=== PATIENT | male | born 1970 | race Caucasian/White ===

== ENCOUNTER 2020-07-03 19:01 | Emergency (ER) | payer SELFPAY ==
[2020-07-03 19:12] VITALS: BP 179/95; PULSE 94; RESP 24; TEMP 37.2; O2SAT 100
--- NOTE | 2020-07-03 19:15 | ECG_ITS ---
Measurements Intervals [place] Rate: 92 P: 86 UT: 144 QRS: 85 QRSD: 98 T: 78 QT: 369 QTc: 458 Interpretive Statements SINUS RHYTHM POSSIBLE LEFT ATRIAL ENLARGEMENT BASELINE ARTIFACT- I, II, III, AVR, AVL, AVF, V1-V2 BORDERLINE ECG Electronically Signed On 07-04-2020 14:16:12 CDT by Cachorro Ruby D.O.
[2020-07-03 20:12] VITALS: BP 179/95; O2SAT 100
[2020-07-03 20:13] VITALS: PULSE 94; RESP 24; TEMP 37.2
--- NOTE | 2020-07-03 20:15 | PC.NURSE ---
0 noted pt refused neuro exam from staff at this time. observed steady on feet, moving all extremities well, speech clear, slight trembling of right arm. reports numbness to left arm previously, fingers presently - states no other changes. .
--- NOTE | 2020-07-04 11:45 | ED.CHESTPAIN ---
HPI - Chest Pain General Chief Complaint: Chest Pain Stated Complaint: left arm numbness Time Seen by Provider: 07/03/20 19:10 Source: patient and RN notes reviewed Mode of arrival: ambulatory Limitations: no limitations History of Present Illness HPI narrative: Patient presents today complaining of left sided chest pain that radiates to the left shoulder and left hand numbness. He describes the pain as sharp. Patient states the numbness started in his entire arm, but has now diminished to just the hand. Symptoms began at 1330. Patient reports the chest pain is intermittent and the numbness is constant. Patient denies shortness of breath, nausea or vomiting, weakness, dizziness or lightheadedness, headache or vision changes, difficulty speaking or swallowing, mental status changes. Denies any alleviating or exacerbating factors. Currently rates his pain 5/10 and has tried no [id number] treatment prior to arrival. States he does have high blood pressure but does not currently take his prescribed medication. Related Data Home Medications Medication Instructions Recorded Confirmed No Home Medications 07/03/20 07/03/20 Allergies Allergy/AdvReac Type Severity Reaction Status Date / Time No Known Allergies Allergy Unknown Verified 07/03/20 19:20 Review of Systems Review of Systems: Narrative: CONSTITUTIONAL: Denies body aches, fever, chills, or sweats. EYES: Denies visual changes, redness, or discharge. ENT: Denies rhinorrhea, congestion, sore throat, or otalgia. CARDIOVASCULAR: Denies palpitations, or edema. + Left-sided chest pain RESPIRATORY: Denies cough or dyspnea. GASTROINTESTINAL: Denies abdominal pain, nausea, vomiting, or diarrhea. GENITOURINARY: Denies dysuria or hematuria. SKIN: Denies rash, itching, or wounds. MUSCULOSKELETAL: Denies back pain, joint pain, or myalgia. NEUROLOGIC: Denies headache, tingling, or weakness. + Left hand numbness PSYCH: Denies depression or anxiety. PENDING SALE TO [facility] Past Medical History Medical History (Updated 07/04/20 @ 12:22 by Carmen Garibay, REHABILITATION ATTENDANT, ) Hypertension Comments At time of signature, I have reviewed and agree with nursing past medical, surgical, social and family history unless otherwise noted. Please see nursing chart for further information. There is no relevant family history pertinent to the presenting complaint Exam Narrative: Exam Narrative: GENERAL: Chronically ill-appearing, and in no acute distress. Thin. Unkempt. Anxious. HEAD: Normocephalic, atraumatic. EYES: EOMI. PERRL. No redness or drainage. Conjunctivae normal. Will not make any additional eye contact other than focused exam. ENT: Nares clear. No rhinorrhea. NECK: Normal AROM. Supple. No lymphadenopathy. CHEST: No respiratory distress. Clear to auscultation. HEART: Regular rate and rhythm. No murmur appreciated. ABDOMEN: Soft, nontender, nondistended, normal active bowel sounds. MUSCULOSKELETAL: SKIN: Warm, dry, no rash. Capillary refill normal. Normal skin turgor. 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 Alert and oriented x3. Gait steady. Unable to assess further. See note below. Patient would not allow me to finish my exam. In the middle of my neuro exam, he sat up on the stretcher and became tearful and stated that he does not like to be in doctor's offices and did not wish to be examined further. Discussed importance of a thorough physical exam and need for transfer due to symptoms and left hand weakness. Patient states he does not wish to be transferred as it is too stressful. We discussed the risks of not being further evaluated as well as the benefits of ER evaluation. He is AOx4 and does not seem under the influence of drugs or alcohol and is able to make his own medical decisions. He understands that he will be signing out AGAINST MEDICAL ADVICE. Course Vital Signs Vital signs: Vital Signs Temperature 98.9 F 07/03/20 19:12 Pulse Rate 94
== END 2020-07-03 19:39 | disposition left against medical advice (07) ==
PROVIDERS: Emergency Provider Nurse Practitioner
DX: R07.9 Chest pain, unspecified (principal); R20.0 Anesthesia of skin; R20.2 Paresthesia of skin
CPT/HCPCS: 93005; 99203; G0463

== ENCOUNTER 2020-07-31 10:54 | Outpatient (CLI) | payer SELFPAY | END 2020-07-31 10:55 | disposition home or self-care (01) | LOC: ANHLAB 10:58 | PROVIDERS: PCP Internal Medicine; Visit Provider Internal Medicine | DX: F33.8 Other recurrent depressive disorders (principal) | CPT/HCPCS: 36415; 84443 ==

== ENCOUNTER 2023-10-28 22:35 | Emergency (ER) | payer OTHER, SELFPAY ==
--- NOTE | ~2023-10-28 | XR_ITS ---
EXAMINATION: XR chest 1V portable DATE: 10/28/2023 23:24 INDICATION: Shortness of breath. Left arm pain. TECHNIQUE: A single frontal view of the chest was obtained. COMPARISON: None. FINDINGS: A calcified left lung nodule and calcified mediastinal lymph nodes are consistent with old granulomatous disease. There is no pneumonia, pleural effusion, or pneumothorax. The heart size is no rmal. There is an old healed fracture of proximal left humerus. IMPRESSION: 1. No acute cardiopulmonary disease. Reviewed, dictated and finalized at location E.
[2023-10-28 22:41] VITALS: BP 136/87; PULSE 103; RESP 18; TEMP 36.9; O2SAT 95
--- NOTE | 2023-10-28 22:41 | ED.EXTPRO ---
HPI - Extremity Problem General Chief complaint: Unspecified Stated complaint: upper extremity Time Seen by Provider: 10/28/23 22:39 Source: patient Mode of arrival: ambulatory Limitations: no limitations History of Present Illness HPI Narrative: 53-year-old male, smoker with a history of hypertension, pre diabetes, depression is brought in by EMS for -- left arm numbness. The patient has a history of left rotator cuff rupture. He has had left arm numbness off and on. -- Left shoulder pain which is chronic -- Patient feels depressed but is not suicidal. He called the police who in turn called EMS. -- patient had a couple of drinks prior to coming to the ER -- shortness of breath patient is going to a diverse and is very anxious. MD Complaint: other ( left shoulder pain. Left arm numbness) Onset (ago): unknown ( patient has the left arm numbness and left shoulder pain for a long time but got worse today ) Pain Consistency: intermittent Location: left and upper extremity Radiation: none Relieving factors: nothing Exacerbating factors: nothing Associated symptoms: denies other symptoms and shortness of breath Related Data Home Medications Medication Instructions Recorded Confirmed albuterol sulfate 2.5 mg/3 mL 2.5 mg inhalation DAILY 10/28/23 10/28/23 (0.083 %) solution for nebulization fluticasone 250 mcg-salmeterol 50 See Rx Instructions .Route .COMPLEX 10/28/23 10/28/23 mcg/dose blistr powdr for inhalation (Advair Diskus) losartan 50 mg-hydrochlorothiazide 1 tablet PO DAILY 10/28/23 10/28/23 12.5 mg tablet (Hyzaar) Allergies Allergy/AdvReac Type Severity Reaction Status Date / Time No Known Allergies Allergy Unknown Verified 10/28/23 23:45 Review of Systems Review of Systems: All systems reviewed & are unremarkable except as noted in HPI and below Constitutional: Constitutional: Reports as per HPI and Reports no additional constitutional complaints Eyes: Eyes: Reports as per HPI and Reports no additional eye complaints ENT: Reports system reviewed and no additional complaints, except as documented and Reports as per HPI Comments: running nose Cardiovascular: Cardiovascular: Reports as per HPI and Reports no additional cardiovascular complaints Respiratory: Respiratory: Reports as per HPI and Reports no additional respiratory complaints Gastrointestinal: Gastrointestinal: Reports as per HPI and Reports no additional gastrointestinal complaints Genitourinary: Genitourinary: Reports no additional male genitourinary complaints and Reports as per HPI Musculoskeletal: Musculoskeletal: Reports no additional musculoskeletal complaints and Reports as per HPI Comments: left shoulder pain Integumentary/Breasts: Skin/Breast: Reports system reviewed and no additional complaints, except as docu and Reports as per HPI Neurologic: Reports system reviewed and no additional complaints, except as documented and Reports as per HPI Comments: left upper extremity numbness Psychiatric: Psychiatric: Reports no additional psychiatric complaints, Reports as per HPI, Reports anxiety and Reports depression Comments: patient is not suicidal or homicidal Endocrine: Endocrine: Reports no additional endocrine complaints and Reports as per HPI Hematologic/Lymphatic: Hematologic/Lymphatic: Reports no additional hematologic/lymphatic complaints and Reports as per HPI Allergic/Immunologic: Allergic/Immunologic: Reports no additional allergic/immunologic complaints and Reports as per HPI PMFSH Past Medical History Medical History (Updated 10/29/23 @ 00:21 by Seng Carson MD) Depression Hypertension Social History Social History (Updated 10/28/23 @ 23:01 by Seng Carson MD) Social History: history of polysubstance abuse. Smoker. Substance use type: former substance user and crack/cocaine Exam Narrative: Vitals are stable Const: General: ill appearing
--- NOTE | 2023-10-28 23:04 | ECG_ITS ---
Test Date: 2023-10-28 23:02:55 Measurements Intervals [place] Rate: 99 P: 74 MN: 140 QRS: 71 QRSD: 93 T: 76 QT: 361 QTc: 464 Interpretive Statements SINUS RHYTHM BASELINE ARTIFACT- I, II, III, AVR, AVL, V1 NORMAL ECG No previous ECG available for comparison Electronically Signed On 10-29-2023 06:12:09 CDT by Cachorro Ruby D.O.
[2023-10-28 23:06] VITALS: PULSE 100; RESP 16; O2SAT 97
[2023-10-28 23:15] VITALS: BP 130/88; PULSE 90; RESP 22; O2SAT 97
[2023-10-28 23:16] VITALS: PULSE 93; RESP 24; O2SAT 96
--- NOTE | 2023-10-28 23:23 | PC.NURSE ---
PATIENT RESTING ON STRETCHER, PLANNING LEAD AT BEDSIDE FOR LAB DRAW. RN MONITORING.
[2023-10-28 23:27] LABS: Basophils Absolute Auto 0.06 K/mm3 (0.00-0.10); Basophils Percent Auto 0.7 % (0.0-1.0); Eosinophils Absolute Auto 0.42 K/mm3 (0.02-0.50); Hematocrit 44.4 % (40.0-54.0); Hemoglobin 15.4 g/dL (14.0-18.0); Immature Granulocyte Absolute 0.03 K/mm3 (0.00-0.00); Immature Granulocyte Percent A 0.4 % (0.0-0.0); Lymphocytes Absolute Auto 2.83 K/mm3 (1.10-4.50); Lymphocytes Percent Auto 33.9 % (18.0-42.0); Mean Corpuscular HGB Conc 34.7 g/dL (32-36); Mean Corpuscular Hemoglobin 33.6 pg (27.0-31.0); Mean Corpuscular Volume 96.9 fL (78.0-102.0); Mean Platelet Volume 8.8 fl (8.7-11.0); Monocytes Absolute Auto 0.61 K/mm3 (0.10-0.90); Monocytes Percent Auto 7.3 % (2.0-11.0); Neutrophils Absolute Auto 4.41 K/mm3 (1.70-7.20); Neutrophils Percent Auto 52.7 % (50.0-70.0); Platelet Count Result 260 K/mm3 (150-420); Red Blood Count 4.58 M/mm3 (4.70-6.10); Red Cell Distribution Width 14.1 % (11.6-14.4); White Blood Count 8.4 K/mm3 (4.8-10.8)
[2023-10-28 23:30] VITALS: BP 129/86; PULSE 98; RESP 27; O2SAT 96
[2023-10-28 23:34] VITALS: PULSE 98; RESP 22; O2SAT 94
[2023-10-28 23:49] LABS: Alanine Aminotransferase 35 U/L (16-63); Albumin Level 3.8 g/dL (3.4-5.0); Alkaline Phosphatase 64 U/L (46-116); Anion Gap 10 mmol/L (4-12); Aspartate Amino Transferase 33 U/L (15-37); Bilirubin,Total 0.3 mg/dL (0.00-1.00); Blood Urea Nitrogen 12 mg/dL (7-18); Carbon Dioxide 27 mmol/L (21-32); Chloride 97 mmol/L (98-108); Estimated CRCL calculation 64 ml/min; Estimated Glomerular Filt Rate > 60; Glucose 98 mg/dL (70-99); NT Pro B Type Natriuretic Pept 24 pg/mL (0-125); Osmolality Calculated 277 mOsm/kg (285-295); Potassium 3.7 mmol/L (3.5-5.1); Sodium 134 mmol/L (136-145); Total Protein 7.1 g/dL (6.4-8.2)
[2023-10-28 23:50] LABS: Ethanol 58 mg/dL (0-6); Lactic Acid Reflex 1.3 mmol/L (0.4-2.0)
[2023-10-29 00:09] LABS: Lipase 15 U/L (16-77); Thyroid Stimulating Hormone 1.75 uIU/mL (0.36-3.74); Troponin I 5.5 ng/L (0.00-60.4)
--- NOTE | 2023-10-29 00:36 | PC.NURSE ---
PATIENT RESTING ON STRETCHER, CALL LIGHT WITHIN REACH. RN MONITORING. VSS
[2023-10-29 00:53] VITALS: PULSE 91; RESP 24
--- NOTE | 2023-10-29 01:38 | PC.NURSE ---
PATIENT AMBULATORY TO BATHROOM AT THIS TIME WITHOUT DIFFICULTY. AWAKE AND ALERT.
== END 2023-10-29 02:05 | disposition home or self-care (01) ==
PROVIDERS: Emergency Provider Internal Medicine Critical Care Medicine; PCP Internal Medicine
DX: F41.9 Anxiety disorder, unspecified (principal); F32.A Depression, unspecified; R20.0 Anesthesia of skin; I10 Essential (primary) hypertension
CPT/HCPCS: 36415; 71045; 80053; 80307; 83605; 83690; 83880; 84443; 84484; 85025; 93005; 99284